=== PATIENT | male | born 1990 | race Native Hawaiian/Other Pacific Islander ===

== ENCOUNTER 2018-12-21 09:34 | Emergency (ER) | payer OTHER ==
--- NOTE | 2018-12-21 10:10 | ED ---
GI/ HPI - HPI Summary HPI Summary: Patient presents with left-sided testicular pain this morning. Associated symptoms of hematuria and vomiting with fever. Patient reports pain is subsiding at this time and he has no current nausea. Additionally he denies headache, chest pain, shortness of breath, abdominal pain, flank pain, diarrhea. Last bowel movement was earlier this morning and was normal for him. He admits he was seen at [facility] 2 weeks ago and diagnosed with epididymitis on the same side for similar symptoms. He was started on doxycycline 10 days. He completed them 4 days ago. Also reports he was tested for gonorrhea and Chlamydia both of which were negative. He denies sexual intercourse recently. No known history of UTI, kidney stones or prostate issues and no recent trauma. - History of Current Complaint Chief Complaint: EDUrogenitalProblems Time Seen by Provider: 12/21/18 09:57 Stated Complaint: BLOOD IN URINE Hx Obtained From: Patient Pain Intensity: 7 - Allergy/Home Medications Allergies/Adverse Reactions: Allergies Allergy/AdvReac Type Severity Reaction Status Date / Time No Known Allergies Allergy Verified 12/21/18 09:40 PMH/Surg Hx/FS Hx/Imm Hx Previously Healthy: Yes Endocrine/Hematology History: Denies: Hx Anticoagulant Therapy History: Reports: Other Problems/Disorders - Epididymitis dx'd clinically at [facility] Infectious Disease History: No Infectious Disease History: Denies: Traveled Outside the [place] in Last 30 Days - Social History Occupation: Student - [employer] Alcohol Use: None Hx Substance Use: No Substance Use Type: Reports: None Hx Tobacco Use: No Smoking Status (MU): Never Smoked Tobacco Review of Systems Positive: Fever, Chills Eyes: Negative ENT: Negative Cardiovascular: Negative Respiratory: Negative Positive: Vomiting - x1 w/ pain earlier, Nausea. Negative: Abdominal Pain, Diarrhea Positive: see HPI Musculoskeletal: Negative Skin: Negative Neurological: Negative Psychological: Normal All Other Systems Reviewed And Are Negative: Yes Physical Exam Triage Information Reviewed: Yes Vital Signs On Initial Exam: Initial Vitals Temp Pulse Resp BP Pulse Ox 96.6 F 62 14 165/107 99 12/21/18 09:35 12/21/18 09:35 12/21/18 09:35 12/21/18 09:35 12/21/18 09:35 Vital Signs Reviewed: Yes Appearance: Positive: No Pain Distress, Well-Nourished - appears tired - sclera injected Skin: Positive: Warm, Skin Color Reflects Adequate Perfusion, Dry Head/Face: Positive: Normal Head/Face Inspection Eyes: Positive: EOMI, Other: - mucosa pink ENT: Positive: Pharynx normal - mucosa moist Respiratory/Lung Sounds: Positive: Clear to Auscultation, Breath Sounds Present. Negative: Rales, Rhonchi, Wheezes Cardiovascular: Positive: Normal, RRR, S1, S2. Negative: Leg Edema Left, Leg Edema Right Abdomen Description: Positive: Nontender, No Organomegaly, Soft. Negative: CVA Tenderness (R), CVA Tenderness (L) Bowel Sounds: Positive: Present Male Genital Exam: Positive: Normal Genitalia, No Hernia. Negative: Epididymal Tenderness, Erythema, Inguinal Tenderness, Lesions, Scrotum Tenderness (R), Scrotum Tenderness (L), Testicular Tenderness (R), Testicular Tenderness (L), Urethral Discharge Musculoskeletal: Positive: Normal, Strength/ROM Intact Neurological: Positive: Normal, Sensory/Motor Intact, Alert, Oriented to Person Place, Time, CN Intact II-III Psychiatric: Positive: Normal Procedures - Sedation Patient Received Moderate/Deep Sedation with Procedure: No Diagnostics - Vital Signs Vital Signs Temp Pulse Resp BP Pulse Ox 12/21/18 09:35 96.6 F 62 14 165/107 99 - Laboratory Lab Statement: Any lab studies that have been ordered have been reviewed, and results considered in the medical decision making process. GIGU Course/Dx - Course Course Of Treatment: UA: Positive blood, positive protein, positive ketones ( note: Patient reports not eating anything this morning). CT reveals: Mild left hydronephrosis is trace to 0.4 cm maximum dimension stone at the far distal left ureter immediately adjacent to the ureterovesicular junction. CT findings correlate with symptoms and clinical suspicion for urinary tract stone. Patient has mostly passed this so will allow him to continue doing so at home. Will provide strainer, pain medication and follow-up with urology. Danger signs and symptoms reviewed. Patient agrees with plan. - Diagnoses Provider Diagnoses: Lower urinary tract stone Discharge ED - Sign-Out/Discharge Documenting (check all that apply): Patient Departure - Discharge Plan Condition: Stable Disposition: HOME Prescriptions: oxyCODONE/Acetamin 5/325 MG* [Percocet 5/325 TAB*] 1 tab PO Q6H PRN #15 tab MDD 4 PRN Reason: Pain - Severe Patient Education Materials: Kidney Stones (ED), How to Strain Your Urine (ED) Referrals: Brennan Leyva MD [Medical Doctor] - Additional Instructions: Drink plenty of fluids Strain urine every time until passing stone You may take ibuprofen 800 mg every 8 hours with food as needed for pain (he can pick this up [id number]). For breakthrough pain he may take Percocet one tablet every 6 hours as needed for pain. This is been sent here pharmacy for you. Please follow up with urology this week. Call contact information provided schedule an appointment. If in the meantime you develop intractable pain, copious bleeding with urination , abdominal pain, fever, chills, difficulty urinating, flank pain, return to the emergency department. - Billing Disposition and Condition Condition: STABLE Disposition: Home
[2018-12-21 10:33] LABS: Urine Appearance Cloudy; Urine Bacteria Absent (Absent); Urine Bilirubin Negative (Negative); Urine Blood 3+ (Negative); Urine Color Yellow; Urine Glucose Negative (Negative); Urine Ketones 1+ (Negative); Urine Nitrite Negative (Negative); Urine Protein 1+(30 mg/dL) (Negative); Urine Red Blood Cell 3+(>10/hpf) (Absent); Urine Specific Gravity 1.015 (1.010-1.030); Urine Urobilinogen Negative (Negative); Urine White Blood Cell 1+(6-10/hpf) (Absent)
[2018-12-21 12:53] VITALS: BP 143/93
== END 2018-12-21 12:52 | disposition home or self-care (01) ==
LOC: ED 09:34
DX: N13.2 Hydronephrosis with renal and ureteral calculous obstruction (principal)
CPT/HCPCS: 74176; 76870; 81003; 81015; 87086; 99282